=== PATIENT | male | born 1995 | race Asian ===

== ENCOUNTER 2022-07-15 11:17 | Emergency (ER) | payer OTHER ==
[~2022-07-15] VITALS: Ht 172.7 cm; Wt 79.4 kg
--- NOTE | 2022-07-15 11:45 | NUR ---
crutch training provided to patient.
[2022-07-15 11:50] VITALS: BP 118/75
--- NOTE | 2022-07-15 11:50 | NUR ---
Patient discharged to home in stable condition. Written and verbal after care instructions given. Patient verbalizes understanding of instructions. Stressed follow up or return to ER for worsening s/s.
== END 2022-07-15 11:57 | disposition home or self-care (01) ==
LOC: ER 11:17
DX: S86.112A Strain of other muscle(s) and tendon(s) of posterior muscle group at lower leg level, left leg, initial encounter (principal); X50.9XXA Other and unspecified overexertion or strenuous movements or postures, initial encounter; Y93.9 Activity, unspecified; Y92.89 Other specified places as the place of occurrence of the external cause
CPT/HCPCS: A4663